=== PATIENT | male | born 1995 | race Two or more races ===

== ENCOUNTER 2024-01-26 15:52 | Emergency (ER) | payer BC ==
[~2024-01-26] VITALS: Ht 175.3 cm; Wt 108.9 kg
[2024-01-26] MEDS ORDERED: FAMOtidine 10 MG/ML (4ML VIAL) IV ONE (17:15)
[2024-01-26] MEDS ORDERED: 0.9 % SODIUM CHLORIDE 1,000 ML IV ONE (17:15)
[2024-01-26] MEDS ORDERED: ONDANSETRON HCL 2 MG/ML VIAL IV ONE (17:15)
[2024-01-26 17:48] LABS: HEMATOCRIT 43.6 % (39.0-48.0); HEMOGLOBIN 14.9 g/dL (13-16.00); MEAN CELL VOLUME 86.8 fL (80.0-100.00); MEAN CORPUSCULAR HEMOGLOBIN 29.6 pg (27.00-32.0); MEAN CORPUSCULAR HGB CONC 34.1 g/dl (32.0-36.0); PLATELET COUNT 220 K/uL (150-450); RED BLOOD COUNT 5.02 M/uL (4.00-6.00); RED CELL DISTRIBUTION WIDTH 12.7 % (11.5-14.5)
[2024-01-26 18:21] LABS: ALBUMIN 3.8 gm/dL (3.4-5.0); BILIRUBIN TOTAL 0.52 mg/dL (0.3-1.2); CALCIUM 8.7 mg/dL (8.5-10.1); CREATININE SERUM 1.17 mg/dL (0.70-1.30); GFR 74.78; GLOBULINA 3.4 G/DL (2.4-3.5); POTASSIUM 3.74 mEq/L (3.5-5.1); TOTAL PROTEIN 7.2 gm/dL (6.4-8.2)
[2024-01-26] MEDS ORDERED: PEPCID AC20 MG PO (19:34)
== END 2024-01-26 19:52 | disposition home or self-care (01) ==
LOC: ER 15:53
PROVIDERS: General Practice
DX: K52.89 Other specified noninfective gastroenteritis and colitis (principal)